=== PATIENT | female | born 1990 | race African-American/Black ===

== ENCOUNTER 2016-07-03 15:59 | Emergency (ER) | payer BC, OTHER ==
[~2016-07-03] VITALS: Ht 157.5 cm; Wt 81.7 kg
[~2016-07-03 15:59] MED LIST: AMOXICILLIN 50500 M1 PO; APAP/CODEINE ELI5 M1 OR; AUGMENTIN 875875 MG PO; FLEXERIL PO; IBUPROFEN 800800 M1 OR; IBUPROFEN 800800 M1 PO; LORTAB 5 MG/5001 TA1 OR; MEDROLDOSEPACK PO; NAPROSYN500 MG PO; NORCO 5-325 TA1 EACH PO; PHENERGAN 25 MG25 M1 PO; PRENATAL PO; RANITIDINE 150150 M1 PO; TUMS CHEWA500 MG/11 PO; TYLENOL P.M. E1 EAC3 PO; ZOFRAN ODT4 MG PO; [UNRECOGNIZED DRUG - OTHER]
[2016-07-03 16:11] LABS: URINE BILIRUBIN NEGATIVE (Negative); URINE BLOOD NEGATIVE (Negative); URINE COLOR YELLOW; URINE GLUCOSE-RANDOM* NEGATIVE (Negative); URINE KETONES NEGATIVE (Negative); URINE NITRITE NEGATIVE (Negative); URINE PROTEIN (DIPSTICK) NEGATIVE (Negative); URINE SPECIFIC GRAVITY 1.015 (1.003-1.035); URINE UROBILINOGEN 0.2 E.U./dl (0.2-1.0)
[2016-07-03 18:13] LABS: HEMATOCRIT 37.2 % (37.0-47.0); HEMOGLOBIN 12.3 gm/dL (12.0-15.0); MCH 28.5 pg (26.0-34.0); MCV 86.6 fL (80.0-100.0); RBC 4.3 mil/uL (4.20-5.00); RDW 13.8 % (10.5-14.5); WBC 7.1 thou/uL (4.0-11.0)
[2016-07-03 18:26] LABS: ALBUMIN 3.7 g/dL (3.4-5.0); CREATININE 0.7 mg/dL (0.6-1.0); POTASSIUM 4.2 mmol/L (3.5-5.1); TOTAL BILIRUBIN 0.6 mg/dL (<0.1-1.0); TOTAL PROTEIN 7.6 g/dL (6.4-8.2)
[2016-07-03] MEDS ORDERED: MOBIC15 MG PO (18:41)
[2016-07-03] MEDS ORDERED: NORCO 5-325 TA1 EACH PO (18:44)
== END 2016-07-03 19:11 | disposition home or self-care (01) ==
LOC: ER 15:59
PROVIDERS: Physician Assistant
DX: N83.202 Unspecified ovarian cyst, left side (principal); N83.201 Unspecified ovarian cyst, right side; G56.00 Carpal tunnel syndrome, unspecified upper limb; Z90.49 Acquired absence of other specified parts of digestive tract; Z88.8 Allergy status to other drugs, medicaments and biological substances

== ENCOUNTER 2016-07-12 18:15 | Inpatient (IN) | payer BC, OTHER ==
[~2016-07-12] VITALS: Ht 157.5 cm; Wt 81.6 kg
--- NOTE | ~2016-07-12 | HC ---
[facility] [address] [place] [address] CONSULTATION Name: LAURIE MULLER Room #: 305-P [facility] IN M.R.#: [id number] Admission: 07/12/16 Attend Phys: Lucas Blackwell MD Discharge: 07/17/16 Date of : 88 Report #: [id number] THIS REPORT FOR: //name// CC: FAM unknown Lucas Blackwell DATE OF SERVICE: 07/13/2016 CHIEF COMPLAINT: Left flank pain. HISTORY OF PRESENT ILLNESS: The patient is a very pleasant 25-year-old woman who is being seen today at the request of Dr. Blackwell for evaluation and management of a possible left renal abscess. Specifically, she was admitted yesterday with left lower quadrant and left-sided abdominal pain. She was in the hospital. She went to the emergency room last week and was told she had an ovarian cyst and was given pain medication. She has had a recent travel to [place] and has had intermittent lower abdominal discomfort and urgency and frequency. ALLERGIES: MELONS. MEDICATIONS: Meloxicam 15 mg daily, hydrocodone 5/325 every 6 hours p.r.n., cholestyramine 4 g daily. ILLNESSES: Include elevated cholesterol. SOCIAL HISTORY: She does not drink. She smokes marijuana daily. FAMILY HISTORY: Significant for mother having brain aneurysm. Father had bone cancer. SURGERIES: Carpal tunnel, cholecystectomy and . REVIEW OF SYSTEMS: She denies shortness of breath or chest pain. PHYSICAL EXAMINATION: GENERAL: She is sitting up in bed. VITAL SIGNS: Temperature is 36.8, pulse 80, respirations 18, blood pressure 144/94. ABDOMEN: Soft without masses. Mild left back and left lower quadrant tenderness. LABORATORY DATA: White count 7.3 thousand, hemoglobin 10.4, hematocrit 31.4, platelets 445,000. Sodium 132, potassium 3.2, chloride 105, CO2 26, BUN 5, creatinine 0.7, glucose 106, alkaline phosphatase is 118. Urinalysis is clear yellow, specific gravity is 1.020, pH is 6, trace protein and ketones, 3+ blood, [address] [address] CONSULTATION Name: LAURIE MULLER Room #: 305-P [facility] IN .R.#: [id number] Admission: 07/12/16 Attend Phys: Lucas Blackwell MD Discharge: 07/17/16 Date of : 88 Report #: [id number] greater than 20 red cells, 6-15 white cells and greater than 10 squamous epithelial cells, moderate bacteria. Yeast is present. Abdominal CT scan shows focal bacteria nephritis with possible early abscess formation. Interestingly, there is minimal stranding around the kidney. IMPRESSION: Pyelonephritis with possible early left renal abscess formation. PLAN: 1. I recommend ID consultation. 2. We will follow closely. She may ultimately require drainage of this, but I would monitor her clinically, at this point as above stated, we will follow and assist with management. <ELECTRONICALLY SIGNED> By: Amos Schmid MD 07/20/16 0706 [id number] Amos Schmid MD /nt
--- NOTE | ~2016-07-12 | HC ---
[facility] [address] [place] [address] CONSULTATION Name: LAURIE MULLER Room #: 305-P ADM IN M.R.#: [id number] Admission: 07/12/16 Attend Phys: Lucas Blackwell MD Discharge: Date of : 88 Report #: [id number] THIS REPORT FOR: //name// CC: FAM unknown Lucas Blackwell REASON FOR CONSULTATION: I was asked to evaluate the patient concerning left pyelonephritis. HISTORY OF PRESENT ILLNESS: The patient is a 25-year-old who presents with illness since travel to [place] in April 2016. While there, she developed constipation, anorexia, mild nausea followed by some intermittent low-grade fever. She never took her temperature, however. Subsequently, developed diarrhea. She has had continued diarrhea last month or so. She has been taking some cholestyramine. Still has not gained her weight back. She then developed left lower quadrant abdominal and pelvic pain. She had some vaginal bleeding. She does take control. Initial evaluation noticed ovarian cyst and felt that this was most likely the etiology of her process. She was discharged only to return because of increased pain. Her diarrhea since being on hydrocodone has resolved. Now most of her pain is left quadrant and left flank. Denies any dysuria, hematuria, or urinary frequency. ALLERGIES: No known medications. She is allergic to MELONS. PAST MEDICAL HISTORY: Cholecystectomy, , carpal tunnel surgery, pneumonia. FAMILY HISTORY: Hypertension, bone marrow cancer, brain aneurysm. SOCIAL HISTORY: Marijuana. No tobacco, no alcohol. No other drugs. 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 Her sister who was on her trip with her to [place] also has had chronic diarrhea since her trip. REVIEW OF SYSTEMS: In addition to the above, she has had no cough or sputum production. No headache, no pharyngitis symptoms. No rash or arthritis. PHYSICAL EXAMINATION: VITAL SIGNS: Afebrile, hemodynamically stable. GENERAL: She was alert and cooperative and pleasant, in no acute distress. She was morbidly obese. SKIN: Unremarkable. LYMPH: Unremarkable. HEENT: Unremarkable. NECK: Supple, no thyromegaly. LUNGS: Clear. HEART: Regular, without murmur. ABDOMEN: Obese, soft, tender in the left lower quadrant and left mid upper [address] [address] CONSULTATION Name: LAURIE MULLER Room #: [address] [place] [address] [place] [facility].#: [id number] Admission: 07/12/16 Attend Phys: Lucas Blackwell MD Discharge: Date of : 88 Report #: [id number]. CVA tenderness to palpation and percussion. There was no rebound or guarding. EXTREMITIES: Unremarkable. LABORATORY STUDIES: Sodium 140, potassium 3.3, bicarbonate 26, creatinine 0.8. AST 24, ALT 80, alkaline phosphatase 118, bilirubin 0.3. Hemoglobin 9.8, white count 7.5 with a normal differential, platelet count 424,000. Beta hCG negative. Urinalysis 6-15 wbc's, greater than 20 rbc's, moderate bacteria. Urine culture, normal gian. Blood cultures negative. Ultrasound of the abdomen showed left pyelonephritis with associated mass. Ultrasound of the abdomen in [address] scan of the abdomen showed swelling to the left kidney associated with mass concerning for pyelonephritis, possible developing abscess, no ureteral obstruction. Does have ovarian cyst. IMPRESSION: A 25-year-old with a persistent illness following travelling to [place] associated with diarrhea and fever, now with left-sided abdominal pain and flank pain and evidence of CT imaging consistent with pyelonephritis. Her urinalysis shows hematuria with limited pyuria and cultures showing normal gian. I am still suspecting a complicated pyelonephritis associated with bacterial infection. Still parasites would be a consideration, although no leukocytosis or eosinophilia. Other consideration would be malignancy, but at her age along with a normal renal ultrasound in 2013 would make this less likely. In addition, the patient has anemia along with mild elevation in her liver enzymes. RECOMMENDATIONS: Continue antibiotic coverage with ceftriaxone and metronidazole. Check urinalysis and urine culture again along with repeat imaging to further assess the nature of this process. If no improvement, we will need and vomit for further sampling. We will check stools for ova and parasite, also check entamoeba serology. <ELECTRONICALLY SIGNED> By: Monty Milan MD 07/17/16 0802 [id number] 0001 Monty Milan MD /nt
[~2016-07-12 18:15] MED LIST changes: +MOBIC15 MG PO
[2016-07-12 18:20] VITALS: BP 168/122
[2016-07-12 18:40] LABS: URINE BILIRUBIN NEGATIVE (Negative); URINE BLOOD 3+ (Negative); URINE COLOR YELLOW; URINE GLUCOSE-RANDOM* NEGATIVE (Negative); URINE KETONES TRACE (Negative); URINE NITRITE NEGATIVE (Negative); URINE PROTEIN (DIPSTICK) TRACE (Negative); URINE UROBILINOGEN 0.2 E.U./dl (0.2-1.0)
[2016-07-12 18:51] LABS: SQUAMOUS >10 Many /LPF (0-3)
[2016-07-12 18:52] LABS: CASTS None Seen /LPF (None Seen); CRYSTALS None Seen /LPF (None Seen); URINE RBC >20 Many /HPF (0-2); URINE WBC 6-15 Few /HPF (0-5); YEAST Present (None Seen)
[2016-07-12 20:14] LABS: BASOPHILS 0.7 % (0.0-2.0); HEMATOCRIT 32.5 % (37.0-47.0); HEMOGLOBIN 10.9 gm/dL (12.0-15.0); LYMPHOCYTES 29.1 % (24.0-44.0); MANUAL DIFF NO; MCH 28.7 pg (26.0-34.0); MCHC 33.5 g/dL (28.0-37.0); MCV 85.7 fL (80.0-100.0); MONOCYTES 7.9 % (1.0-8.0); PLATELET COUNT 444 thou/uL (150-400); POLYS 61.3 % (36.0-66.0); RDW 13.3 % (10.5-14.5); WBC 8.2 thou/uL (4.0-11.0)
[2016-07-12] MEDS ORDERED: CHOLESTYRAMINE P4 GM PO (20:19)
[2016-07-12 20:22] LABS: ANION GAP 7 mmol/L (7-16); BUN 5 mg/dL (7-18); CALCIUM 9.1 mg/dL (8.5-10.1); CHLORIDE 105 mmol/L (98-107); CO2 28 mmol/L (21-32); CREATININE 0.7 mg/dL (0.6-1.0); GLUCOSE 105 mg/dL (74-106); POTASSIUM 3.5 mmol/L (3.5-5.1); SODIUM 140 mmol/L (136-145)
[2016-07-12 20:27] LABS: ALKALINE PHOSPHATASE 130 U/L (46-116); DIRECT BILIRUBIN < 0.1 mg/dL (<0.1-0.3); SGOT 28 U/L (15-37); SGPT 91 U/L (30-65); TOTAL BILIRUBIN 0.3 mg/dL (<0.1-1.0); TOTAL PROTEIN 7.6 g/dL (6.4-8.2)
[2016-07-12 22:00] VITALS: BP 131/67
[2016-07-12 22:17] VITALS: BP 161/97
[2016-07-13 01:31] LABS: HEMATOCRIT 31.4 % (37.0-47.0); HEMOGLOBIN 10.4 gm/dL (12.0-15.0); MCH 28.3 pg (26.0-34.0); MCHC 33.3 g/dL (28.0-37.0); MCV 85.1 fL (80.0-100.0); RBC 3.68 mil/uL (4.20-5.00); RDW 13.3 % (10.5-14.5); WBC 7.3 thou/uL (4.0-11.0)
[2016-07-13 01:46] LABS: ALBUMIN 2.8 g/dL (3.4-5.0); CALCIUM 8.5 mg/dL (8.5-10.1); CREATININE 0.7 mg/dL (0.6-1.0); POTASSIUM 3.2 mmol/L (3.5-5.1); TOTAL BILIRUBIN 0.3 mg/dL (<0.1-1.0); TOTAL PROTEIN 7.2 g/dL (6.4-8.2)
[2016-07-13 03:51] VITALS: BP 143/77
[2016-07-13 07:59] VITALS: BP 139/90
[2016-07-13 15:43] VITALS: BP 144/94
[2016-07-13 19:30] VITALS: BP 151/93
[2016-07-13 22:30] VITALS: BP 161/78
[2016-07-14 04:35] LABS: HEMATOCRIT 29.2 % (37.0-47.0); HEMOGLOBIN 9.8 gm/dL (12.0-15.0); MCH 28.6 pg (26.0-34.0); MCHC 33.5 g/dL (28.0-37.0); MCV 85.2 fL (80.0-100.0); RBC 3.43 mil/uL (4.20-5.00); RDW 13.3 % (10.5-14.5); WBC 7.5 thou/uL (4.0-11.0)
[2016-07-14 04:45] LABS: CALCIUM 8.5 mg/dL (8.5-10.1); CREATININE 0.8 mg/dL (0.6-1.0); POTASSIUM 3.3 mmol/L (3.5-5.1)
[2016-07-14 05:00] VITALS: BP 136/85
[2016-07-14 07:50] VITALS: BP 133/88
[2016-07-14] MEDS ORDERED: XANAX1 MG PO (08:36)
[2016-07-14 16:05] VITALS: BP 124/78
[2016-07-14 17:12] LABS: URINE BILIRUBIN NEGATIVE (Negative); URINE BLOOD 1+ (Negative); URINE COLOR YELLOW; URINE GLUCOSE-RANDOM* NEGATIVE (Negative); URINE KETONES NEGATIVE (Negative); URINE NITRITE NEGATIVE (Negative); URINE PROTEIN (DIPSTICK) NEGATIVE (Negative); URINE UROBILINOGEN 0.2 E.U./dl (0.2-1.0)
[2016-07-14 17:26] LABS: SQUAMOUS 0-3 Few /LPF (0-3); URINE RBC 3-10 Few /HPF (0-2)
[2016-07-14 17:27] LABS: BACTERIA 1-9 Few /HPF (None Seen); CASTS None Seen /LPF (None Seen); CRYSTALS None Seen /LPF (None Seen); URINE WBC None Seen /HPF (0-5)
[2016-07-14 18:06] LABS: SMEAR FOR EOSINOPHILS No Eosinophils Seen
[2016-07-14 19:40] VITALS: BP 169/109
[2016-07-15 04:15] VITALS: BP 137/89
[2016-07-15 05:02] LABS: HEMATOCRIT 30.3 % (37.0-47.0); HEMOGLOBIN 10.1 gm/dL (12.0-15.0); MCH 28.2 pg (26.0-34.0); MCHC 33.2 g/dL (28.0-37.0); MCV 84.7 fL (80.0-100.0); RBC 3.58 mil/uL (4.20-5.00); RDW 13.2 % (10.5-14.5); WBC 7.1 thou/uL (4.0-11.0)
[2016-07-15 05:08] LABS: CALCIUM 8.7 mg/dL (8.5-10.1); CREATININE 0.8 mg/dL (0.6-1.0); POTASSIUM 3.6 mmol/L (3.5-5.1)
[2016-07-15 08:25] VITALS: BP 141/91
[2016-07-15 17:00] VITALS: BP 156/99
[2016-07-15 20:00] VITALS: BP 159/104
[2016-07-16 04:00] VITALS: BP 139/96
[2016-07-16 04:32] LABS: HEMATOCRIT 34.7 % (37.0-47.0); HEMOGLOBIN 11.2 gm/dL (12.0-15.0); MCH 27.6 pg (26.0-34.0); MCHC 32.3 g/dL (28.0-37.0); MCV 85.5 fL (80.0-100.0); RBC 4.05 mil/uL (4.20-5.00); RDW 13.2 % (10.5-14.5); WBC 7.4 thou/uL (4.0-11.0)
[2016-07-16 04:48] LABS: CALCIUM 9.2 mg/dL (8.5-10.1); CREATININE 0.8 mg/dL (0.6-1.0); POTASSIUM 3.9 mmol/L (3.5-5.1)
[2016-07-16 07:28] VITALS: BP 154/63
[2016-07-16 16:21] VITALS: BP 154/90
[2016-07-16 19:50] VITALS: BP 148/94
[2016-07-17 03:50] VITALS: BP 119/78
[2016-07-17 05:23] LABS: HEMATOCRIT 32.8 % (37.0-47.0); MCH 28.5 pg (26.0-34.0); MCHC 33.6 g/dL (28.0-37.0); MCV 84.9 fL (80.0-100.0); RBC 3.87 mil/uL (4.20-5.00); RDW 13.2 % (10.5-14.5); WBC 6.4 thou/uL (4.0-11.0)
[2016-07-17 05:43] LABS: CALCIUM 9.2 mg/dL (8.5-10.1); CREATININE 0.8 mg/dL (0.6-1.0); POTASSIUM 3.7 mmol/L (3.5-5.1)
[2016-07-17 08:49] VITALS: BP 144/97
[2016-07-17] MEDS ORDERED: XANAX1 MG PO (13:36)
[2016-07-17] MEDS ORDERED: CEFDINIR300 MG PO (13:37)
[2016-07-17 13:55] VITALS: BP 144/97
[2016-07-17 14:12] VITALS: BP 144/97
[2016-07-17] MEDS ORDERED: HYDROCODONE-AP1 EAC6 PO (14:37)
[2016-07-17 14:48] VITALS: BP 144/97
== END 2016-07-17 14:47 | disposition home or self-care (01) | DRG 690 ==
LOC: ER 18:15 → 3N 21:28 → EROBS 21:28 → 3N 22:07
PROVIDERS: Emergency Medicine; Hospitalist; Nurse Practitioner Family; Specialist
DX: N10 Acute pyelonephritis (principal); B37.49 Other urogenital candidiasis; R91.1 Solitary pulmonary nodule; R74.8 Abnormal levels of other serum enzymes; D64.9 Anemia, unspecified; F12.90 Cannabis use, unspecified, uncomplicated; Z87.01 Personal history of pneumonia (recurrent); Z90.49 Acquired absence of other specified parts of digestive tract; Z79.899 Other long term (current) drug therapy; Z91.018 Allergy to other foods; Z80.7 Family history of other malignant neoplasms of lymphoid, hematopoietic and related tissues; Z82.49 Family history of ischemic heart disease and other diseases of the circulatory system; Z82.3 Family history of stroke
CPT/HCPCS: 10094

== ENCOUNTER → 2016-07-25 | Outpatient (CLI) | payer BC, OTHER ==
[~2016-07-25] MED LIST changes: +CEFDINIR300 MG PO; +CHOLESTYRAMINE P4 GM PO; +HYDROCODONE-AP1 EAC6 PO; +XANAX1 MG PO
== END ==
LOC: CAT 07:44
DX: N12 Tubulo-interstitial nephritis, not specified as acute or chronic (principal); N15.1 Renal and perinephric abscess

== ENCOUNTER → 2016-08-14 | Outpatient (CLI) | payer BC, OTHER ==
[~2016-08-14] MED LIST changes: +NORCO 10-325 T1 EAC1 PO; +NORVASC5 M1 PO
== END ==
LOC: SPEC 09:09
DX: T83.018A Breakdown (mechanical) of other urinary catheter, initial encounter (principal); I10 Essential (primary) hypertension; F41.8 Other specified anxiety disorders; Z90.49 Acquired absence of other specified parts of digestive tract; Z98.890 Other specified postprocedural states; Y83.8 Other surgical procedures as the cause of abnormal reaction of the patient, or of later complication, without mention of misadventure at the time of the procedure

== ENCOUNTER → 2016-09-07 | Outpatient (CLI) | payer BC, OTHER | LOC: CAT 09:36 | DX: R91.8 Other nonspecific abnormal finding of lung field (principal) ==

== ENCOUNTER → 2016-09-20 | Outpatient (CLI) | payer BC, OTHER | LOC: PET 10:45 | DX: C64.9 Malignant neoplasm of unspecified kidney, except renal pelvis (principal); R91.8 Other nonspecific abnormal finding of lung field ==

== ENCOUNTER 2016-10-20 13:39 | Emergency (ER) | payer BC, OTHER ==
[~2016-10-20] VITALS: Ht 157.5 cm; Wt 93.4 kg
[2016-10-20] MEDS ORDERED: MIRALAX17 GM PO (14:11)
[2016-10-20 14:14] LABS: URINE BILIRUBIN NEGATIVE (Negative); URINE BLOOD NEGATIVE (Negative); URINE COLOR YELLOW; URINE GLUCOSE-RANDOM* NEGATIVE (Negative); URINE KETONES NEGATIVE (Negative); URINE NITRITE NEGATIVE (Negative); URINE PROTEIN (DIPSTICK) NEGATIVE (Negative); URINE SPECIFIC GRAVITY <= 1.005 (1.003-1.035); URINE UROBILINOGEN 0.2 E.U./dl (0.2-1.0)
[2016-10-20] MEDS ORDERED: MUSCLE RELAXER PO (14:17)
== END 2016-10-20 15:00 | disposition home or self-care (01) ==
LOC: ER 13:39
PROVIDERS: Emergency Medicine
DX: F41.9 Anxiety disorder, unspecified (principal); I10 Essential (primary) hypertension; Z87.01 Personal history of pneumonia (recurrent); Z98.890 Other specified postprocedural states; Z91.018 Allergy to other foods